=== PATIENT | male | born 1960 | race Hispanic/Latino ===

== ENCOUNTER 2018-06-27 13:21 | Inpatient (IN) | payer OTHER ==
[~2018-06-27] VITALS: Ht 165.1 cm; Wt 73.5 kg
[2018-06-27] MEDS ORDERED: ONDANSETRON HCL INJ 2 MG/ML VIAL IV STA (14:10)
[2018-06-27 14:22] LABS: BASOPHILS % 0.3 % (0.0-1.0); EOSINOPHILS # (AUTO) 0.1 (0.0-0.4); EOSINOPHILS % 0.9 % (0.0-6.0); HEMATOCRIT 25.3 % (38.2-49.6); HEMOGLOBIN 8.5 g/dL (14.0-18.0); LYMPHOCYTES # (AUTO) 0.6 (1.0-3.2); LYMPHOCYTES % 4.1 % (18.0-39.1); MEAN CORPUSCULAR HEMOGLOBIN 32.9 pg (28-32); MEAN CORPUSCULAR HGB CONC 33.6 g/dL (31-35); MEAN CORPUSCULAR VOLUME 98.1 fL (81-99); MONOCYTES # (AUTO) 1.2 (0.2-0.8); MONOCYTES % 8.1 % (4.4-11.3); NEUTROPHILS # (AUTO) 12.2 (2.1-6.9); PLATELET COUNT 333 x10e3/uL (140-360); RED BLOOD COUNT 2.58 x10e6/uL (4.3-5.7); RED CELL DISTRIBUTION WIDTH 16.8 % (11.7-14.4)
[2018-06-27] MEDS ORDERED: SODIUM BICARBONATE 8.4% INJ 50 ML SYR IV STA (14:56)
[2018-06-27] MEDS ORDERED: CALCIUM GLUCONATE 10% INJ 9.3 MEQ in SODIUM CHLORIDE 0.9% 100 ML 100 ML IV ONE (15:00)
[2018-06-27 15:10] LABS: ALBUMIN 3.6 g/dL (3.5-5.0); ALBUMIN/GLOBULIN RATIO 0.8 (0.8-2.0); ANION GAP 28.5 mmol/L (8-16); CREATININE, SERUM 11.58 mg/dL (0.72-1.25); MAGNESIUM 2.1 MG/DL (1.3-2.1); PHOSPHORUS 11.5 MG/DL (2.3-4.7)
--- NOTE | 2018-06-27 15:10 | Diagnostic Imaging Report ---
EXAMINATION: CHEST SINGLE (PORTABLE) INDICATION: \S\SOB, Chest pain COMPARISON: None FINDINGS: AP view TUBES and LINES: Right IJ dialysis catheter in the right atrium. LUNGS: Lungs are well inflated. There is mild prominence of the central pulmonary vasculature, consistent with pulmonary venous congestion. PLEURA: No pleural effusion or pneumothorax. HEART AND MEDIASTINUM: Cardiac size is moderately enlarged. There are atherosclerotic calcifications within the aorta. BONES AND SOFT TISSUES: No acute osseous lesion. Soft tissues are unremarkable. UPPER ABDOMEN: No free air under the diaphragm. IMPRESSION: Moderate cardiomegaly with central pulmonary venous congestion. Signed by: Dr. Jhon Mcdaniel M.D. on 06/27/2018 3:07 PM
[2018-06-27 15:12] LABS: CALCIUM 6.8 mg/dL (8.4-10.2); POTASSIUM 6.5 mmol/L (3.5-5.1)
[2018-06-27] MEDS ORDERED: CALCIUM GLUCONATE 10% INJ 0.465 MEQ/ML VIAL ONE (15:17)
[2018-06-27] MEDS ORDERED: DEXTROSE 50% SYRINGE 50 ML IV STA (15:20)
[2018-06-27] MEDS ORDERED: ALBUTEROL SULF 0.083% NEB SOLN 3 ML NEB NEB STA (15:20)
[2018-06-27] MEDS ORDERED: SODIUM CHLORIDE 0.9% 50ML 50 ML ONE (15:20)
[2018-06-27] MEDS ORDERED: INSULIN REGULAR, HUMAN 100 UNIT/1 ML 3ML VIAL IV ONE (15:30)
[2018-06-27] MEDS ORDERED: SODIUM CHLORIDE 0.9% 1000ML 1,000 ML IV ONE (15:30)
[2018-06-27] MEDS ORDERED: SODIUM CHLORIDE FLUSH 10 ML SYR INJ PRN (16:00)
[2018-06-27] MEDS ORDERED: ASPIRIN 81 MG CHEW TAB PO ONE (16:00)
[2018-06-27] MEDS ORDERED: ONDANSETRON HCL INJ 2 MG/ML VIAL IV PRN (16:00)
[2018-06-27 17:32] LABS: ABG HCO3 24 mmol/L (23-28); ABG PCO2 38 mmHg (41-51); ABG PO2 151 mmHg (80-105)
[2018-06-27] MEDS ORDERED: HEPARIN SOD (PORCINE) 1000 UNIT/ML 10ML MDV IM ONE ×2 (18:45)
[2018-06-27] MEDS ORDERED: CLONIDINE HCL 0.2 MG TAB PO ONE (19:00)
[2018-06-27] MEDS: SEVELAMER CARBONATE 800 MG TAB PO SCH (19:12)
[2018-06-27] MEDS ORDERED: ULTRAM50 MG PO (19:34)
[2018-06-27] MEDS ORDERED: LASIX40 MG PO (19:34)
[2018-06-27] MEDS ORDERED: NORCO 5-325 TA1 EACH PO (19:34)
[2018-06-27] MEDS ORDERED: ISOSORBIDE MONO20 MG PO ×2 (19:34→21:57)
[2018-06-27] MEDS ORDERED: LOSARTAN POTAS100 MG PO (19:34)
[2018-06-27] MEDS ORDERED: el (19:34)
[2018-06-27] MEDS ORDERED: METOPROLOL SUCC50 MG PO (19:34)
[2018-06-27] MEDS ORDERED: HYDRALAZINE HCL10 MG PO (19:34)
[2018-06-27] MEDS ORDERED: NIFEDIPINE10 MG PO (19:34)
[2018-06-27] MEDS ORDERED: ASPIR 8181 MG (19:34)
[2018-06-27] MEDS ORDERED: FLOMAX0.4 MG PO (19:34)
[2018-06-27] MEDS ORDERED: PROMETHAZINE HC25 M1 PO (19:34)
[2018-06-27] MEDS ORDERED: RENAGEL800 MG PO ×2 (19:34→21:57)
[2018-06-27] MEDS ORDERED: COREG3.125 MG (19:34)
[2018-06-27] MEDS ORDERED: TERAZOSIN HCL1 MG PO (19:34)
[2018-06-27] MEDS ORDERED: NORVASC5 MG PO (19:34)
--- NOTE | 2018-06-27 19:36 | Consultation ---
DATE OF CONSULTATION: June 27, 2018 This is a 57-year-old gentleman with underlying history of end-stage renal disease, coronary artery disease, congestive heart failure, hypertension, anemia, diabetes, multiple comorbidities, recent sepsis, hospitalization at [place], and underlying secondary hyperparathyroidism, anemia of chronic kidney disease, who currently has been admitted with congestive heart failure. Was found to have shortness of breath. Denies any chest pain. His chest x-ray shows cardiomegaly with pulmonary vascular congestion. LABORATORY TESTS: White count 14.1 with a hemoglobin of 8.5. Potassium 6.5 with a calcium of 6.3, bicarbonate 20. SOCIAL HISTORY: Patient does not smoke or drink. FAMILY HISTORY: Significant for hypertension. PAST MEDICAL HISTORY: Significant as above. CURRENT MEDICATIONS: Patient received urgent treatment for hyperkalemia in the ER. Please see ER notes for detail. PHYSICAL EXAMINATION GENERAL: He is currently laying supine. No apparent distress. Dialysis nurse has been called on a stat basis for dialysis, and he is already at the bedside. The patient is awake, alert, and laying supine. No apparent distress. VITALS: Blood pressure 130/60, pulse rate 80. HEAD AND NECK: Cornea clear. Oral mucosa moist. LUNGS: Bibasilar rales. HEART: S1 and S2 audible. A 2-3/6 ejection systolic murmur heard over the left sternal border. No gallops. ABDOMEN: Otherwise soft and nontender. No apparent visceromegaly. LOWER EXTREMITY EXAMINATION: Shows no edema. IMPRESSION AND PLAN 1. Life-threatening hyperkalemia with echocardiogram changes. 2. Underlying hypertension. 3. Fluid overload. 4. Congestive heart failure. 5. Coronary artery disease. 6. Multiple comorbidities. Urgent hemodialysis. Fluid restriction. Appropriate salt restriction. Potassium restricted diet. Will start phosphorus binders. Nurse at bedside. Orders given. Job#: [id number] [facility]
[2018-06-27] MEDS ORDERED: NITROGLYCERIN 2% OINT 1 GM PKT ONE (20:48)
[2018-06-27] MEDS ORDERED: NITROGLYCERIN 2% OINT 1 GM PKT TOP ONE (21:00)
[2018-06-27] MEDS ORDERED: NIFEDIPINE CR 30 MG TAB ONE (21:44)
[2018-06-27] MEDS ORDERED: NIFEDIPINE CR 30 MG TAB PO STA (21:45)
[2018-06-27] MEDS ORDERED: ASPIRIN EC81 MG PO (21:57)
[2018-06-27] MEDS ORDERED: LEVEMIR100 UNIT/1 (21:57)
[2018-06-27] MEDS ORDERED: CLONIDINE HCL0.3 MG PO (21:57)
[2018-06-27] MEDS ORDERED: CARVEDILOL25 MG PO (21:57)
[2018-06-27] MEDS ORDERED: HYDRALAZINE HCL50 MG PO (21:57)
[2018-06-27] MEDS ORDERED: LOSARTAN POTASS50 MG PO (21:57)
[2018-06-27] MEDS ORDERED: OMEPRAZOLE20 MG PO (21:57)
[2018-06-27] MEDS ORDERED: GABAPENTIN100 MG PO (21:57)
[2018-06-27] MEDS ORDERED: ELIQUIS PO (21:57)
[2018-06-27] MEDS ORDERED: DEXTROSE 50% SYRINGE 50 ML IV PRN (22:00)
[2018-06-27] MEDS ORDERED: HYDRALAZINE HCL 20 MG/ML VIAL ONE (22:06)
[2018-06-27] MEDS ORDERED: HYDRALAZINE HCL 20 MG/ML VIAL IV STA (22:10)
[2018-06-27] MEDS ORDERED: HYDRALAZINE HCL 20 MG/ML VIAL IV PRN (22:15)
[2018-06-27 22:30] VITALS: BP 192/70
[2018-06-27 22:49] LABS: CREATINE KINASE MB 4.4 ng/mL (0-5.0)
[2018-06-27 23:30] VITALS: BP 192/70
[2018-06-28] VITALS (15 sets, daily range): BP systolic 122–164; BP diastolic 48–80
[2018-06-28 05:02] LABS: BASOPHILS % 0.3 % (0.0-1.0); EOSINOPHILS # (AUTO) 0.3 (0.0-0.4); EOSINOPHILS % 2.1 % (0.0-6.0); HEMOGLOBIN 8.1 g/dL (14.0-18.0); LYMPHOCYTES % 8.7 % (18.0-39.1); MEAN CORPUSCULAR HEMOGLOBIN 32.7 pg (28-32); MEAN CORPUSCULAR HGB CONC 33.8 g/dL (31-35); MEAN CORPUSCULAR VOLUME 96.8 fL (81-99); MONOCYTES # (AUTO) 1.4 (0.2-0.8); MONOCYTES % 11.4 % (4.4-11.3); NEUTROPHILS # (AUTO) 9.1 (2.1-6.9); PLATELET COUNT 311 x10e3/uL (140-360); RED BLOOD COUNT 2.48 x10e6/uL (4.3-5.7); RED CELL DISTRIBUTION WIDTH 16.4 % (11.7-14.4)
[2018-06-28 05:25] LABS: ALBUMIN 3.2 g/dL (3.5-5.0); ALBUMIN/GLOBULIN RATIO 0.8 (0.8-2.0); ANION GAP 20.3 mmol/L (8-16); CALCIUM 7.9 mg/dL (8.4-10.2); CREATININE, SERUM 6.18 mg/dL (0.72-1.25); MAGNESIUM 2.1 MG/DL (1.3-2.1); POTASSIUM 4.3 mmol/L (3.5-5.1)
[2018-06-28 05:37] LABS: CREATINE KINASE MB 3.8 ng/mL (0-5.0)
--- NOTE | 2018-06-28 06:42 | Diagnostic Imaging Report ---
EXAM: CHEST SINGLE (PORTABLE), AP 1 view INDICATION: Shortness of breath COMPARISON: AP view the chest June 27, 2018 FINDINGS: LINES/TUBES: Stable position of right internal jugular vein tunneled hemodialysis catheter. LUNGS: No consolidations or edema. PLEURA: No effusions or pneumothorax. HEART AND MEDIASTINUM: Stable cardiomegaly and vascular congestion. BONES AND SOFT TISSUES: No acute findings. IMPRESSION: Stable cardiomegaly and vascular congestion Signed by: Dr. Mara Wolfe M.D. on 06/28/2018 6:38 AM
[2018-06-28] MEDS: INSULIN REGULAR, HUMAN 100 UNIT/1 ML 3ML VIAL SQ SCH ×4 (07:30→21:45)
[2018-06-28] MEDS: HYDRALAZINE HCL 25 MG TAB PO SCH ×2 (09:00→18:09)
[2018-06-28] MEDS: CLONIDINE HCL 0.3 MG TAB PO SCH ×4 (09:00→21:00)
[2018-06-28] MEDS: SEVELAMER CARBONATE 800 MG TAB PO SCH ×3 (09:01→18:07)
[2018-06-28] MEDS: GABAPENTIN 100 MG CAP PO SCH (09:54)
[2018-06-28] MEDS: ASPIRIN 81 MG ENTERIC COATED PO SCH (09:54)
[2018-06-28] MEDS: PANTOPRAZOLE SOD 40 MG TABEC PO SCH (09:54)
[2018-06-28] MEDS: APIXABAN 5 MG TABLET PO SCH ×2 (09:54→18:07)
[2018-06-28] MEDS: CARVEDILOL 12.5 MG TAB PO SCH ×2 (10:25→18:09)
[2018-06-28 12:21] LABS: % IRON SATURATION 27 % (15-50); IRON 53 ug/dL (65-175); TOTAL IRON BINDING CAPACITY 199 ug/dL (261-478); TRANSFERRIN 142 mg/dL (174-364)
[2018-06-28 12:46] LABS: FREE THYROXINE INDEX 1.6297 (1.4-3.8); THYROID STIMULATING HORMONE 1.107 uIU/mL (0.350-4.940)
--- NOTE | 2018-06-28 14:14 | History and Physical ---
CLINICAL HISTORY: This is a 57-year-old white man with end-stage renal disease, admitted via emergency room because of severe junctional bradycardia, heart rate down to 40 beats per minute, associated with near syncope. This patient had similar problems in August of 2017, hospitalized at [facility] requiring dialysis. This time, he also missed dialysis for approximately 5 days. Finally, when he went to dialysis, he developed the bradycardia related to hyperkalemia, potassium over 6.5. He was sent to our emergency room whereupon he received dialysis with improvement. PAST MEDICAL HISTORY: Remarkable for end-stage renal disease, insulin-dependent diabetes, polypharmacy, history of atrial fibrillation, CVA, history of coronary artery disease and stenting, severe aortic stenosis, aortic velocity 3.3 meters per second, ejection fraction was 50%. He has history of glaucoma, blindness, pulmonary hypertension, mild mitral regurgitation, tricuspid regurgitation, pulmonary artery pressure is 40 mmHg, some possible mass in the right atrium or due to catheter artifact, anemia, hyperlipidemia, and hypertension. PERSONAL AND SOCIAL HISTORY: Denies smoking or drinking. FAMILY HISTORY: Remarkable for diabetes. REVIEW OF SYSTEMS: Noncontributory. PHYSICAL EXAMINATION GENERAL: He is alert, coherent, appears to be comfortable. CARDIAC: Jugular veins are not distended. S1, S2 were regular. There is no appreciable murmur. LUNGS: Clear. ABDOMEN: Soft. Bowel sounds are present. EXTREMITIES: Showed no cyanosis, clubbing or edema. IMPRESSION 1. Severe bradycardia, junctional, 40 beats per minute, associate with near syncope, due to hyperkalemia, potassium of 6.5, resolved after dialysis. 2. End-stage renal disease on chronic hemodialysis. 3. Noncompliance with respect to dialysis. 4. Right leg pain. This patient went to the emergency room and found a Doppler there, reportedly it was negative, although we do not have first hand report. The patient was told that he had fluid collection that may require drainage. 5. Insulin-dependent diabetes. 6. Polypharmacy. 7. 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 8. Unclear history of atrial fibrillation. 9. Coronary artery disease with unclear history of stenting. 10. Glaucoma with blurring of vision. 11. History of diminished hearing left ear. 12. Chronic anemia. 13. Hyperlipidemia. 14. Hypertension. 15. History of chronic anticoagulation with Eliquis presumably due to history of atrial fibrillation and cerebrovascular accident. 16. Hypertension. 17. Pulmonary hypertension of 40 minutes. 18. Moderate severe aortic stenosis with gradient at 43 mmHg and velocity of 3.3 meters per seconds. 19. Mild mitral regurgitation. 20. Ejection fraction of 50%. RECOMMENDATIONS: An MRI of the right leg particularly in the calf area was tender. Repeat Doppler scan of the right leg veins since we do not have the first hand report from [place] emergency room, dialysis, the surgical opinion concerning the leg. At this time, with regards to the junctional bradycardia, no additional therapy is needed. This patient does have baseline right bundle branch block. Job#: [id number] VAS cc:DR. REINALDO MARTIN
[2018-06-28] MEDS: ISOSORBIDE MONONITRATE 20 MG TAB PO SCH ×2 (18:10→18:17)
[2018-06-28] MEDS: LOSARTAN POTASSIUM 25 MG TAB PO SCH (18:10)
[2018-06-29] VITALS (19 sets, daily range): BP systolic 146–194; BP diastolic 67–125
[2018-06-29 05:01] LABS: BASOPHILS % 0.2 % (0.0-1.0); EOSINOPHILS # (AUTO) 0.3 (0.0-0.4); EOSINOPHILS % 2.4 % (0.0-6.0); HEMATOCRIT 22.3 % (38.2-49.6); HEMOGLOBIN 7.4 g/dL (14.0-18.0); LYMPHOCYTES # (AUTO) 0.9 (1.0-3.2); LYMPHOCYTES % 7.7 % (18.0-39.1); MEAN CORPUSCULAR HEMOGLOBIN 32.3 pg (28-32); MEAN CORPUSCULAR HGB CONC 33.2 g/dL (31-35); MEAN CORPUSCULAR VOLUME 97.4 fL (81-99); MONOCYTES # (AUTO) 1.4 (0.2-0.8); MONOCYTES % 11.6 % (4.4-11.3); NEUTROPHILS # (AUTO) 9.4 (2.1-6.9); NEUTROPHILS % 77.8 % (38.7-80.0); PLATELET COUNT 283 x10e3/uL (140-360); RED BLOOD COUNT 2.29 x10e6/uL (4.3-5.7); RED CELL DISTRIBUTION WIDTH 16.4 % (11.7-14.4)
[2018-06-29 05:26] LABS: ANION GAP 21.3 mmol/L (8-16); CALCIUM 7.5 mg/dL (8.4-10.2); CREATININE, SERUM 8.19 mg/dL (0.72-1.25); POTASSIUM 4.3 mmol/L (3.5-5.1)
[2018-06-29] MEDS: INSULIN REGULAR, HUMAN 100 UNIT/1 ML 3ML VIAL SQ SCH ×4 (07:51→22:56)
[2018-06-29] MEDS ORDERED: SODIUM CHLORIDE 0.9% 250ML 250 ML IV ONE (08:00)
--- NOTE | 2018-06-29 08:53 | Diagnostic Imaging Report ---
TECHNIQUE: Magnetic resonance imaging of the RIGHT calf was performed WITHOUT injected contrast. COMPARISON: None available. HISTORY: Right calf pain, possible fluid collection FINDINGS: Initial MRI images are of the ankle, as ordered. However within the history a MRI of the calf is requested. A report will be made after patient returns for imaging of the calf. IMPRESSION: A separate accession was made for the MRI of the calf. The MRI ankle was erroneously scanned. No billing. Signed by: Dr. Fabio Nelson M.D. on 06/29/2018 5:05 PM
[2018-06-29] MEDS: CLONIDINE HCL 0.3 MG TAB PO SCH ×4 (09:00→21:00)
[2018-06-29] MEDS: HYDRALAZINE HCL 25 MG TAB PO SCH ×2 (09:00→17:09)
[2018-06-29] MEDS: SEVELAMER CARBONATE 800 MG TAB PO SCH ×3 (09:31→17:09)
[2018-06-29] MEDS: ASPIRIN 81 MG ENTERIC COATED PO SCH (09:31)
[2018-06-29] MEDS: APIXABAN 5 MG TABLET PO SCH ×2 (09:32→17:09)
[2018-06-29] MEDS: CARVEDILOL 12.5 MG TAB PO SCH ×2 (09:32→17:09)
[2018-06-29] MEDS: LOSARTAN POTASSIUM 25 MG TAB PO SCH (09:32)
[2018-06-29] MEDS: PANTOPRAZOLE SOD 40 MG TABEC PO SCH (09:33)
[2018-06-29] MEDS: ISOSORBIDE MONONITRATE 20 MG TAB PO SCH ×2 (09:33→17:09)
[2018-06-29] MEDS: GABAPENTIN 100 MG CAP PO SCH (09:33)
--- NOTE | 2018-06-29 10:29 | Cardiology Report ---
DATE OF STUDY: June 28, 2018 DOPPLER SCAN OF LOWER EXTREMITY VEINS ATTENDING PHYSICIAN: Dr. Guzman The lower extremity veins were interrogated using the duplex scanning method. The veins were compressible. There was no definite deep venous thrombosis. CONCLUSION: No definite deep venous thrombosis identified in the lower extremity veins bilaterally. Job#: [id number] cc:REINALDO WHITE MD
[2018-06-29] MEDS ORDERED: SODIUM CHLORIDE 0.9% 1000ML 1,000 ML ONE (14:25)
[2018-06-29] MEDS ORDERED: HEPARIN SOD (PORCINE) 1000 UNIT/ML SDV ONE (15:07)
--- NOTE | 2018-06-29 17:06 | Diagnostic Imaging Report ---
TECHNIQUE: Magnetic resonance imaging of the right tibia-fibula was performed WITHOUT injected contrast. HISTORY: Evaluate for fluid collection COMPARISON: None available. FINDINGS: Bone marrow signal is normal. No fracture or edema or infiltrating lesion. No concerning fluid collection. Edema tracks between the compartments of the calf. Scattered edema within the musculature of the calf most prominent involving the posterior compartment involving the gastrocnemius and soleus laterally. No muscle atrophy. IMPRESSION: No fluid collection. Muscle edema of the calf most prominent involving the posterior compartment of the calf. Signed by: Dr. Fabio Nelson M.D. on 06/29/2018 5:03 PM
[2018-06-30 02:00] VITALS: BP 105/60
[2018-06-30 05:00] VITALS: BP 180/90
[2018-06-30 05:24] LABS: BASOPHILS % 0.2 % (0.0-1.0); EOSINOPHILS # (AUTO) 0.3 (0.0-0.4); EOSINOPHILS % 2.4 % (0.0-6.0); HEMATOCRIT 28.8 % (38.2-49.6); HEMOGLOBIN 9.6 g/dL (14.0-18.0); LYMPHOCYTES # (AUTO) 0.6 (1.0-3.2); LYMPHOCYTES % 4.9 % (18.0-39.1); MEAN CORPUSCULAR HEMOGLOBIN 31.3 pg (28-32); MEAN CORPUSCULAR HGB CONC 33.3 g/dL (31-35); MEAN CORPUSCULAR VOLUME 93.8 fL (81-99); MONOCYTES % 7.8 % (4.4-11.3); NEUTROPHILS # (AUTO) 10.7 (2.1-6.9); NEUTROPHILS % 84.2 % (38.7-80.0); PLATELET COUNT 293 x10e3/uL (140-360); RED BLOOD COUNT 3.07 x10e6/uL (4.3-5.7); RED CELL DISTRIBUTION WIDTH 17.6 % (11.7-14.4)
[2018-06-30 05:39] LABS: ANION GAP 17.3 mmol/L (8-16); CALCIUM 8.2 mg/dL (8.4-10.2); CREATININE, SERUM 5.37 mg/dL (0.72-1.25); PHOSPHORUS 4.7 MG/DL (2.3-4.7); POTASSIUM 4.3 mmol/L (3.5-5.1)
[2018-06-30 07:30] VITALS: BP 186/97
[2018-06-30] MEDS: INSULIN REGULAR, HUMAN 100 UNIT/1 ML 3ML VIAL SQ SCH ×2 (07:30→12:00)
[2018-06-30] MEDS: SEVELAMER CARBONATE 800 MG TAB PO SCH ×2 (08:45→12:00)
[2018-06-30] MEDS: ASPIRIN 81 MG ENTERIC COATED PO SCH (08:46)
[2018-06-30] MEDS: HYDRALAZINE HCL 25 MG TAB PO SCH (08:46)
[2018-06-30] MEDS: CLONIDINE HCL 0.3 MG TAB PO SCH ×3 (08:46→12:28)
[2018-06-30] MEDS: APIXABAN 5 MG TABLET PO SCH (08:47)
[2018-06-30] MEDS: LOSARTAN POTASSIUM 25 MG TAB PO SCH (08:47)
[2018-06-30] MEDS: ISOSORBIDE MONONITRATE 20 MG TAB PO SCH (08:47)
[2018-06-30] MEDS: CARVEDILOL 12.5 MG TAB PO SCH (08:47)
[2018-06-30] MEDS: PANTOPRAZOLE SOD 40 MG TABEC PO SCH (08:48)
[2018-06-30] MEDS: GABAPENTIN 100 MG CAP PO SCH (08:48)
[2018-06-30 12:00] VITALS: BP 155/81
[2018-06-30] MEDS ORDERED: AMLODIPINE BESYLATE 5 MG TAB PO SCH (12:30)
[2018-06-30] MEDS ORDERED: CLONIDINE HCL0.3 MG PO (12:31)
[2018-06-30] MEDS ORDERED: NORVASC5 MG PO (12:31)
[2018-06-30 13:08] VITALS: BP 155/81
[2018-06-30 14:00] VITALS: BP 115/65
--- NOTE | 2018-06-30 14:33 | Discharge Summary ---
ATTENDING PHYSICIAN: Dr. Guzman. CLINICAL HISTORY: This is a 57-year-old woman, patient Dr. Jose De Jesus Nunez, who was admitted via the emergency room because of junctional bradycardia with severe hyperkalemia after the patient has not been dialyzed several times (approximately 6 days). Please refer to my previous dictation concerning details of current illness, past medical history, personal social history, family history, review of systems, physical examination, and initial laboratory studies. HOSPITAL COURSE: The patient was treated with immediate dialysis with resolution of hyperkalemia and junctional bradycardia. His blood pressure was elevated. We nevertheless decreased his clonidine from 0.3 mg q.i.d. to 0.3 mg b.i.d, but we added losartan 250 mg b.i.d. and amlodipine 5 mg p.o. daily. His blood pressure at the time of discharge was in the range of 150 and he was running 140s, but occasionally 180s. We are hoping now for the medications to take effect. His blood pressure will be further under control. He is very anxious to be discharged, refusing medications, wanted to go home. At the time of presentation, he had complained of right calf pains. He also had ultrasound that was done at [facility] that was negative. We repeated the ultrasound that was also negative. He was told that at one time in the past he has some fluid in the leg that may need to be drained; however, we did MRI scan and we found no fluid. He was treated symptomatically with improvement. He is advised to take nonsteroidal anti-inflammatory medications. He is encouraged to followup with his dialysis and to get dialysis on a regular basis. If needed, I can see him for followup for his blood pressure if is not able to see Dr. Nunez. He has appointment to see Dr. Nunez in 1 week and will follow up in dialysis clinic in 2 days. He was given activity, diet, medication, and followup instructions. DISCHARGE MEDICATIONS: Included amlodipine 5 mg p.o. daily, clonidine 0.3 mg p.o. b.i.d, isosorbide mononitrate 20 mg p.o. b.i.d., losartan 50 mg b.i.d., omeprazole 20 mg daily, Renagel 2.4 g p.o. t.i.d. with meals, Eliquis 5 mg p.o. b.i.d., aspirin 81 mg p.o. daily, Coreg 25 mg b.i.d, gabapentin 100 mg p.o. daily, hydralazine 50 mg p.o. b.i.d, and insulin Levemir as previously given. DISCHARGE DIAGNOSES 1. Severe junctional bradycardia due to hyperkalemia corrected with dialysis and with correction of hyperkalemia. 2. Noncompliance with dialysis, resolving severe hyperkalemia. 3. End-stage renal disease, on chronic hemodialysis. 4. Right leg pain improved with analgesics with negative MRI scan and negative repeat Doppler of the leg veins. 5. Insulin-dependent diabetes. 6. Polypharmacy. 7. 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 8. Unclear history of atrial fibrillation, on Eliquis. 9. Coronary artery disease with unclear history of stenting. 10. Glaucoma with blurring of vision. 11. History of dementia. 12. Chronic anemia related to end-stage renal disease. 13. Hyperlipidemia. 14. Hypertension, severe. 15. Chronic anticoagulation with Eliquis. 16. Pulmonary hypertension 40 mmHg. 17. Moderate aortic stenosis with gradient of 43 mmHg and velocity of 3.3 meters per second. 18. Mild mitral regurgitation. 19. Ejection fraction of 50%. ALMITA GUZMAN MD Job#: [id number] [facility] cc:DR. FATEMEH NUNEZ
[2018-06-30] MEDS ORDERED: CLONIDINE HCL 0.3 MG TAB PO SCH (17:00)
[2018-06-30] MEDS ORDERED: LOSARTAN POTASSIUM 25 MG TAB PO SCH (17:00)
== END 2018-06-30 14:36 | disposition home or self-care (01) | DRG 640 ==
LOC: ER 13:21 → ERHOLD 16:11 → IMCU 22:40
PROVIDERS: ADMIT Internal Medicine Cardiovascular Disease; ATTEND Internal Medicine Cardiovascular Disease
PROC: 5A1D70Z Performance of Urinary Filtration, Intermittent, Less than 6 Hours Per Day (ICD-10-PCS; 2018-06-27)
PROC: 5A1D70Z Performance of Urinary Filtration, Intermittent, Less than 6 Hours Per Day (ICD-10-PCS; principal; 2018-06-29)
DX: E87.5 Hyperkalemia (principal); N18.6 End stage renal disease; I69.351 Hemiplegia and hemiparesis following cerebral infarction affecting right dominant side; I13.2 Hypertensive heart and chronic kidney disease with heart failure and with stage 5 chronic kidney disease, or end stage renal disease; R00.1 Bradycardia, unspecified; E11.22 Type 2 diabetes mellitus with diabetic chronic kidney disease; E11.65 Type 2 diabetes mellitus with hyperglycemia; Z99.2 Dependence on renal dialysis; Z91.15 Patient's noncompliance with renal dialysis; Z79.4 Long term (current) use of insulin; E78.5 Hyperlipidemia, unspecified; F03.90 Unspecified dementia, unspecified severity, without behavioral disturbance, psychotic disturbance, mood disturbance, and anxiety; I48.91 Unspecified atrial fibrillation; Z79.01 Long term (current) use of anticoagulants; H40.9 Unspecified glaucoma; I34.0 Nonrheumatic mitral (valve) insufficiency; I27.20 Pulmonary hypertension, unspecified; I50.9 Heart failure, unspecified; E83.51 Hypocalcemia
CPT/HCPCS: 36415; 36600; 71045; 80048; 80053; 82550; 82553; 82805; 82948; 83540; 83735; 84100; 84436; 84443; 84466; 84479; 84484; 85025; 86704; 86706; 86850; 86900; 86920; 87340; 90962; 93005; 93970; 96372; 99284; J0360; J0610; J1644; J2405; J7030; J7799; P9016